=== PATIENT | female | born 1995 | race Hispanic/Latino ===

== ENCOUNTER 2019-09-22 13:31 | Emergency (ER) | payer MEDICAID ==
--- NOTE | 2019-09-22 15:13 | Emergency Department Report ---
Blank Doc - Documentation Documentation: 23-year-old female that presents with a rhogam shot. Patient was sent by [facility] for a rhogam. This initial assessment/diagnostic orders/clinical plan/treatment(s) is/are subject to change based on patient's health status, clinical progression and re-assessment by fellow clinical providers in the ED. Further treatment and workup at subsequent clinical providers discretion. Patient/guardians urged not to elope from the ED as their condition may be serious if not clinically assessed and managed. Initial orders include: 1- Patient sent to [facility] for further evaluation and treatment
[2019-09-22 15:14] VITALS: BP 117/70
--- NOTE | 2019-09-22 15:45 | Emergency Department Report ---
ED Recheck HPI - General Chief Complaint: Recheck/Abnormal Lab/Rx Stated Complaint: NEEDS RHOGAM SHOT Time Seen by Provider: 09/22/19 15:13 Source: patient Mode of arrival: Ambulatory Limitations: No Limitations - History of Present Illness Initial Comments: 23-year-old female that presents with a rhogam shot. Patient was sent by [facility] for a rhogam. Patient reports she is 6 months . She is 3 para 1. - Related Data Allergies Allergy/AdvReac Type Severity Reaction Status Date / Time Bleach (Sodium Hypochlorite) AdvReac Hives Verified 09/22/19 14:17 ED Review of Systems ROS: Stated complaint: NEEDS RHOGAM SHOT Other details as noted in HPI ED Past Medical Hx - Past Medical History Previous Medical History?: No - Surgical History Past Surgical History?: No - Social History Smoking Status: Current Every Day Smoker Substance Use Type: None ED Physical Exam - General Limitations: No Limitations General appearance: alert, in no apparent distress - Head Head exam: Present: atraumatic, normocephalic - ENT ENT exam: Present: mucous membranes moist - Neurological Exam Neurological exam: Present: alert, oriented X3, normal gait - Psychiatric Psychiatric exam: Present: agitated - Skin Skin exam: Present: warm, dry, intact, normal color. Absent: rash ED Course Vital Signs 09/22/19 15:11 Temperature 98.5 F Pulse Rate 92 H Respiratory 15 Rate Blood Pressure 117/70 O2 Sat by Pulse 99 Oximetry ED Recheck [facility] - Medical Decision Making Patient left because she was waiting too long to get her RhoGam injection. Patient should follow-up with her primary care RESEARCH DIETITIAN provider Critical care attestation.: If time is entered above; I have spent that time in minutes in the direct care of this critically ill patient, excluding procedure time. ED Disposition Clinical Impression: Encounter for prophylactic administration of RhoGAM Disposition: ELOPED Is pt being admited?: No Does the pt Need Aspirin: No Condition: Stable
== END 2019-09-22 17:00 | disposition left against medical advice (07) ==
LOC: ED 13:31
DX: O36.0190 Maternal care for anti-D [Rh] antibodies, unspecified trimester, not applicable or unspecified (principal); F17.200 Nicotine dependence, unspecified, uncomplicated; Z3A.00 Weeks of gestation of pregnancy not specified; Z29.13 Encounter for prophylactic Rho(D) immune globulin
CPT/HCPCS: 86850; 86900; 86901; 99281

== ENCOUNTER 2019-10-10 13:58 | Emergency (ER) | payer MEDICAID ==
--- NOTE | 2019-10-10 18:28 | Emergency Department Report ---
Chief Complaint: Medical Clearance Stated Complaint: TI SHOT Time Seen by Provider: 10/10/19 18:13 - HPI History of Present Illness: 23yo F states that she has a Rhogam shot order by her OBGYN ( Dr. Tamiko Kessler) to be given today. She denies pain or discomfort. - ROS Review of Systems: All systems reviewed and negative. - Exam Vital Signs: reviewed Physical Exam: General-WNL HEENNT-WNL Lungs-WNL Heart-WNL Abdomen-WNL MS-WNL Skin-WNL Neuro-WNL Psych-WNL MSE screening note: Focused history and physical exam performed. Due to findings the following was ordered: Pt was given her shot and D/C home; she was instructed f/u with OBGYN and see ER as needed. Patient discussed with doctor:: SUBHA MI ED Disposition for MSE Clinical Impression: Encounter for prophylactic administration of RhoGAM Condition: Stable Additional Instructions: F/U with OBGYN; see ER as needed. Referrals: GONZALEZ ESQUIVEL [Other] - 3-5 Days
--- NOTE | 2019-10-10 19:37 | Emergency Department Report ---
ED Recheck HPI - General Chief Complaint: Medical Clearance Stated Complaint: ROHGAM SHOT Time Seen by Provider: 10/10/19 18:13 Source: patient, family Mode of arrival: Ambulatory Limitations: No Limitations - History of Present Illness Initial Comments: This is a 23-year-old female she was sent from her INSECT CONTROL INSPECTOR office to get ED RhoGam shot at 7 months . Patient has no related issues. She has care and taking vitamin. Denies any vaginal bleed or discharge. No concern for STD. No shortness of breath chest pain or coronavirus related symptoms. Denies any nausea or vomiting. She says she is just here to get her RhoGam shot and she will follow-up with INSECT CONTROL INSPECTOR. She said INSECT CONTROL INSPECTOR sent her here because they do not have that shot. Patient blood type is O- MD Complaint: other (Sent for RhoGam shot) Initial Visit For: other (7 months ) Returns Today for: CBOAL (All negative), other (Need medication.) Symptoms Since Prior Visit: no new symptoms Context: called for abnorm lab res (All negative), other (Program) Associated Symptoms: none Treatments Prior to Arrival: other (None) - Related Data Allergies Allergy/AdvReac Type Severity Reaction Status Date / Time Bleach (Sodium Hypochlorite) AdvReac Hives Verified 09/22/19 14:17 ED Review of Systems ROS: Stated complaint: ROHGAM SHOT Other details as noted in HPI Constitutional: denies: chills, fever Respiratory: denies: cough, shortness of breath, wheezing Cardiovascular: denies: chest pain, palpitations, dyspnea on exertion, orthopnea, edema, syncope Gastrointestinal: denies: abdominal pain, nausea, vomiting, hematemesis, hematochezia Genitourinary: denies: hematuria Musculoskeletal: denies: back pain, arthralgia Skin: denies: rash Neurological: denies: headache ED Past Medical Hx - Past Medical History Previous Medical History?: No - Surgical History Past Surgical History?: No - Family History Family history: no significant - Social History Smoking Status: Current Every Day Smoker Substance Use Type: None ED Physical Exam - General Limitations: No Limitations General appearance: alert, in no apparent distress - Head Head exam: Present: atraumatic, normocephalic - Eye Eye exam: Present: normal appearance - ENT ENT exam: Present: normal exam, normal orophraynx, mucous membranes moist - Neck Neck exam: Present: normal inspection - Respiratory Respiratory exam: Present: normal lung sounds bilaterally. Absent: respiratory distress - Cardiovascular Cardiovascular Exam: Present: regular rate, normal rhythm, normal heart sounds - GI/Abdominal GI/Abdominal exam: Present: soft, normal bowel sounds. Absent: distended, tenderness - Extremities Exam Extremities exam: Present: normal inspection, full ROM. Absent: tenderness, normal capillary refill, pedal edema, calf tenderness - Back Exam Back exam: Present: normal inspection, full ROM - Neurological Exam Neurological exam: Present: alert, oriented X3, normal gait - Psychiatric Psychiatric exam: Present: normal affect, normal mood - Skin Skin exam: Present: warm, dry, intact, normal color. Absent: rash ED Course Vital Signs 10/10/19 10/10/19 10/10/19 14:42 18:33 21:40 Temperature 98.2 F Pulse Rate 99 H 92 H 84 Respiratory 18 16 16 Rate Blood Pressure 117/79 118/69 111/71 O2 Sat by Pulse 100 100 100 Oximetry - Reevaluation(s) Reevaluation #1: 10/10/19 20:37 Patient is stable and awaiting RhoGam shot that is been prepared by blood bank. Reevaluation #2: 10/10/19 21:46 Patient received ED RhoGam without any adverse reaction. She is stable and in no acute distress. ED Recheck MDM - Differential Diagnosis Prescription Refill(s) (Patient is here for ED RhoGam shot.) - Medical Decision Making This is a 23-year-old female sent by [employer] INS[employer] for ED RhoGam shot. Blood type is O-. Patient received medication and monitored and in stable condition. Discharge home from the ED to follow-up with INSE[facility] CONTROL INSPECTOR in 2 to 3 days. Critical care attestation.: If time is entered above; I have spent that time in minutes in the direct care of this critically ill patient, excluding procedure time. ED Disposition Clinical Impression: Encounter for prophylactic administration of RhoGAM Disposition: DC-01 TO HOME OR SELFCARE Is pt being admited?: No Does the pt Need Aspirin: No Condition: Stable Additional Instructions: Follow-up with INSECT CONTROL INSPECTOR as as instructed If your condition worsens return to the emergency room. Print Language: GREENLANDIC
[2019-10-10 21:41] VITALS: BP 111/71
== END 2019-10-10 22:00 | disposition home or self-care (01) ==
LOC: ED 13:58
DX: Z29.13 Encounter for prophylactic Rho(D) immune globulin (principal)
CPT/HCPCS: 85461; 86850; 86900; 86901; 96372; 99282; J2790

== ENCOUNTER 2019-12-03 16:53 | Inpatient (IN) | payer MEDICAID ==
[2019-12-03] MEDS ORDERED: fentaNYL 100 MCG/2 ML INJ IV PRN (18:18)
[2019-12-03] MEDS ORDERED: LIDOCAINE (2%) 20 MG/1 ML VIAL 20 ML MDV INFILTRATI ONE (18:18)
[2019-12-03] MEDS ORDERED: ePHEDrine SULFATE 50 MG/1 ML INJ IV PRN (18:18)
[2019-12-03] MEDS ORDERED: TERBUTALINE 1 MG/1 ML INJ SUB-Q PRN (18:18)
--- NOTE | 2019-12-03 18:30 | History and Physical Report ---
History of Present Illness Date of examination: 12/03/19 Date of admission: 12/03/2019 Chief complaint: Labor History of present illness: 23 year old presents to L&D in active labor. Patient is a [facility] patient and records are rosalia richardson. LMP 03/18/2019. EDC 12/17/2019. Past medical history: anxiety/depression, crohns disease, history of blood transfusion, induced , Rh negative, anemia. problems: anemia (supplemented with iron) and anxiety/depression (managed on Wellbutrin), + drug screen (THC). labs are as follows: O negative, antibody screen negative, rubella immune, hepatitis B surface antigen negative, HIV negative, RPR nonreactive, hepatitis C Ab negative, hemoglobin electrophoresis AA, panorama low risk male, 1 hour sugar test 94, gonorrhea negative, chlamydia negative, trichomonas negative, GBS negative. Past History Past Medical History: other (depression/anxiety, anemia, crohns disease) Past Surgical History: other (EAB first trimester) ABA THERAPIST History: denies: chlamydia, gonorrhea, hepatitis B, hepatitis C, herpes, HIV, syphilis, trichomonas Family/Genetic History: none Social history: lives with family, full code, other (THC use during ). denies: smoking, alcohol abuse, prescription drug abuse, IV drug use - Obstetrical History Expected Date of Delivery: 12/17/19 Actual Gestation: 38 Week(s) 0 Day(s) : 3 Para: 1 Hx # Term Pregnancies: 1 Number of Pregnancies: 0 Spontaneous Abortions: 0 Induced : 1 Number of Living Children: 1 Medications and Allergies Allergies Allergy/AdvReac Type Severity Reaction Status Date / Time Bleach (Sodium Hypochlorite) AdvReac Hives Verified 09/22/19 14:17 Active Meds: Active Medications Ephedrine Sulfate (Ephedrine Sulfate) 10 mg IV Q2M PRN PRN Reason: Hypotension Fentanyl (Sublimaze) 100 mcg IV Q2H PRN PRN Reason: Pain,Severe (7-10) LABOR PAIN Oxytocin/Sodium Chloride (Pitocin/Ns 20 Unit/1000ml Drip) 20 units in 1,000 mls @ 125 mls/hr IV DIRECT LYNNE Lactated Ringer's (Lactated Ringers) 1,000 mls @ 125 mls/hr IV DIRECT LYNNE Lidocaine (Xylocaine 2%) 20 ml INFILTRATI ONCE ONE Stop: 12/03/19 18:19 Terbutaline Sulfate (Brethine) 0.25 mg SUB-Q ONCE PRN PRN Reason: Hyperstimulation/Hypertonicity Review of Systems All systems: negative (contractions) - Vital Signs Vital signs: Vital Signs Temp Pulse BP 98.4 F 91 H 126/68 12/03/19 17:18 12/03/19 17:18 12/03/19 17:18 Temp Pulse Resp BP Pulse Ox 98.4 F 115 H 126/68 99 12/03/19 17:18 12/03/19 18:18 12/03/19 17:19 12/03/19 18:18 - Physical Exam Abdomen: Positive: normal appearance, soft. Negative: distention, tenderness, guarding, rigidity Genitourinary (Female): Positive: normal external genitalia, normal perenium. Negative: perineal/vulvar lesions (no lesions seen on careful exam with bright light upon admission) Vagina: Positive: normal moisture Uterus: Positive: enlarged. Negative: tender Anus/Rectum: Positive: normal perianal skin Extremities: Positive: normal. Negative: tenderness, edema - Obstetrical FHR: category 1 Uterine Contraction Monitor Mode: External Cervical Dilatation: 7 Cervical Effacement Percentage: 100 station: 0 Uterine Contraction Pattern: Regular Uterine Contraction Intensity: Moderate Results All other labs normal. Assessment and Plan A: at 38 weeks gestation. Active labor. GBS negative. History of THC use during . P: Admit. EFM. Anticipate vaginal . Urine drug screen.
[2019-12-03] MEDS: LACTATED RINGERS 1,000 ML IV SCH ×2 (18:37→21:23)
[2019-12-03] MEDS ORDERED: OXYTOCIN 20 UNIT/1000ML DRIP 20 UNITS/1,000 ML BAG IV SCH (19:00)
--- NOTE | 2019-12-03 19:08 | Event Note ---
Date: 12/03/19 SVE /0/BBOW.
[2019-12-03 19:13] LABS: Hematocrit 26.7 % (30.3-42.9); Hemoglobin 8.3 gm/dl (10.1-14.3); Mean Corpuscular HGB Conc 31 % (30-34); Mean Corpuscular Volume 73 fl (79-97); Platelet Count 218 K/mm3 (140-440); Red Blood Count 3.67 M/mm3 (3.65-5.03); Red Cell Distribution Width 18.3 % (13.2-15.2)
[2019-12-03] MEDS ORDERED: DEXMEDETOMIDINE 200 MCG/2 ML VIAL IV ONE (19:43)
[2019-12-03] MEDS ORDERED: MINERAL OIL 30 ML ORAL LIQD ONE (20:10)
--- NOTE | 2019-12-03 20:19 | Progress Note ---
Labor Epidural - Labor Epidural Start Time: 19:47 Stop Time: 19:58 Performed by:: MAURICIO STANFORD Procedure: Combined Spinal Epidural Patient is requesting combined spinal epidural for labor and pain. H&P, labs were reviewed. All questions and concerns were answered. Informed consent was obtained. Timeout performed. Patient in sitting position on side of bed. Sterile prep and drape was performed. [3] mL 1% lidocaine skin wheal at L [3]-L [4]. 18-gauge Touhy epidural needle advanced to [id number] using air technique, [5cm]. 27-gauge spinal needle advanced [clear positive free- flowing] CSF. spinal dose of [Precedex 10 mcg]. Epidural catheter advanced to [10] cm. [Negative] Aspiration, [negative] test dose. Sterile dressing applied. Patient tolerated procedure well.
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
[2019-12-03] MEDS ORDERED: MAGNESIUM HYDROXIDE (MOM) ORAL LIQD UDC PO PRN (20:59)
[2019-12-03] MEDS ORDERED: LANOLIN/ZINC/DIMETHICONE (LANSINOH) 7 GM TP PRN (20:59)
[2019-12-03] MEDS ORDERED: WITCH HAZEL/ GLYCERIN PAD TP PRN (20:59)
--- NOTE | 2019-12-03 21:07 | Procedure Note ---
OB Delivery Note - Delivery Date of Delivery: 12/03/19 Surgeon: YOSVANY MICHAELS Estimated blood loss: other (250 cc) - Vaginal Delivery presentation: vertex Delivery position: OA Intrapartum events: none Delivery induction: none Delivery augmentation: rupture of membranes Delivery monitor: external FHT, external uterine Route of delivery: Delivery placenta: spontaneous Delivery cord: 3 umbilical vessels Episiotomy: midline Delivery laceration: none Delivery repair: vicryl Anesthesia: local, epidural Delivery comments: Spontaneous vaginal delivery at 08:24 of liveborn male infant weighing 6 lb. 2 oz. over 1st degree midline episiotomy with apgars of 8/9. Epidural anesthesia. Baby placed skin to skin with mom immediately after delivery. Baby bulb suctioned, dried, and stimulated. Spontaneous cry and respirations. 3 vessel cord double clamped and cut. Cord blood obtained. Spontaneous delivery of intact placenta and membranes by avery mechanism; trailing membranes. Small 1st degree MLE repaired with 3-0 vicryl in usual sterile fashion. No other lacerations noted. Vaginal sweep negative. Sponge count correct. Mother and baby stable. Will order pelvic US due to trailing membranes.
--- NOTE | 2019-12-03 21:49 | Post Anesthesia Evaluation ---
- Post Anesthesia Evaluation Patient Participated: Yes Airway Patent: Yes Stable Respiratory Function: Yes Nausea/Vomiting: No Temp > 96.8F: Yes Pain Manageable: Yes Adequeate Hydration: Yes Anesthesia Complications: No Block Receding Appropriately: Yes Patient on Ventilator: No
--- NOTE | 2019-12-03 22:01 | Ultrasound Report ---
US pelvic limited INDICATION / CLINICAL INFORMATION: check for retained/accessory placental lobe. COMPARISON: None available. FINDINGS: There are some retained products of conception seen within the uterus. IMPRESSION: There are some retained products of conception in the uterus Signer Name: Robert Landeros MD FACR Signed: 12/03/2019 9:57 PM Workstation Name: [id number]
--- NOTE | 2019-12-03 22:31 | Event Note ---
Date: 12/03/19 US showed retained placental tissue. Patient is receiving IV Pitocin. Fundus is firm and midline below the umbilicus. Lochia is small to moderate in amount. Consulted with Dr. Ricks re: US results showing retained placental tissue. Dr. Ricks states to keep bleeding controlled; MD states no other interventions needed at this time.
[2019-12-03] MEDS: IBUPROFEN 600 MG TAB PO SCH (23:00)
[2019-12-03] MEDS: METHYLERGONOVINE 0.2 MG TABLET PO SCH (23:53)
[2019-12-04] MEDS: METHYLERGONOVINE 0.2 MG TABLET PO SCH ×3 (07:37→21:27)
[2019-12-04] MEDS: IBUPROFEN 600 MG TAB PO SCH ×3 (10:17→21:29)
[2019-12-04 10:32] LABS: Hematocrit 27.7 % (30.3-42.9); Hemoglobin 8.8 gm/dl (10.1-14.3)
[2019-12-04] MEDS: HYDROcodone/ACETAMINOPHEN 5-325 MG TAB PO PRN ×2 (11:16→20:06)
[2019-12-04] MEDS ORDERED: ONDANSETRON 4 MG/2 ML INJ IV ONE (13:18)
[2019-12-04] MEDS ORDERED: ONDANSETRON 4 MG ODT TAB PO PRN (14:31)
[2019-12-04] MEDS: DOCUSATE SODIUM 100 MG CAP PO SCH ×2 (17:42→21:31)
[2019-12-04] MEDS: FERROUS SULFATE 325 MG TAB PO SCH ×2 (17:43→21:27)
--- NOTE | 2019-12-04 19:18 | Progress Note ---
Assessment and Plan A: day 1 S/P . Anemia. P: Supplement with iron. Anticipate discharge in 24 to 48 hours. Subjective - Subjective Date of service: 12/04/19 Principal diagnosis: day 1 S/P Interval history: day 1 S/P . No complaints. Doing well. Patient reports: appetite normal, voiding normally, pain well controlled, flatus, ambulating normally, no dizzy ambulation, no nauseated : doing well Objective - Vital Signs Latest vital signs: Vital Signs Temp Pulse Resp BP Pulse Ox 12/04/19 17:07 97.3 F L 63 18 115/68 98 12/04/19 13:21 97.7 F 71 18 119/71 97 12/04/19 07:43 98.3 F 95 H 18 121/72 96 12/04/19 05:47 98.0 F 80 18 119/71 98 12/04/19 00:25 98.5 F 18 120/74 12/03/19 23:50 89 118/67 12/03/19 23:07 77 118/75 12/03/19 23:03 85 110/71 12/03/19 23:00 18 12/03/19 22:54 99 H 99 12/03/19 22:52 68 109/71 12/03/19 22:50 54 L 71 L 12/03/19 22:47 71 95 12/03/19 22:39 69 L 12/03/19 22:37 75 103/67 12/03/19 22:35 98.3 F 12/03/19 22:28 102 H 0 L 12/03/19 22:22 110 H 113/65 12/03/19 22:07 83 109/71 12/03/19 21:52 82 108/65 12/03/19 21:38 81 104/52 12/03/19 21:22 83 103/61 12/03/19 21:07 91 H 106/63 12/03/19 20:53 110 H 98 12/03/19 20:52 107 H 114/58 12/03/19 20:48 113 H 99 12/03/19 20:43 102 H 99 12/03/19 20:38 104 H 98 12/03/19 20:37 92 H 116/56 12/03/19 20:34 107 H 125/51 05/23/20 20:33 108 H 99 05/23/20 20:31 109 H 128/59 05/23/20 20:28 102 H 111/54 98 05/23/20 20:25 120 H 135/78 05/23/20 20:23 139 H 99 05/23/20 20:22 129 H 112/73 05/23/20 20:19 109 H 116/74 05/23/20 20:18 104 H 99 05/23/20 20:16 100 H 112/63 05/23/20 20:13 98 H 120/66 99 05/23/20 20:10 86 112/67 05/23/20 20:08 96 H 99 05//20 20:07 95 H 116/69 05//20 20:04 99 H 116/74 05//20 20:03 95 H 99 05/23/20 20:01 100 H 121/64 05/23/20 19:58 96 H 115/65 98 05//20 19:55 103 H 106/53 05/23/20 19:53 106 H 152/56 100 05/23/20 19:49 98 H 138/60 05/23/20 19:48 109 H 100 05/23/20 19:46 102 H 120/65 05/23/20 19:45 106 H 114/65 05//20 19:43 106 H 100 05/23/20 19:38 120 H 100 05/23/20 19:33 108 H 99 05/23/20 19:28 98 H 100 05/23/20 19:23 101 H 100 05//20 19:18 98 H 100 Intake and Output 0524/20 05/24/20 05/24/20 07:59 15:59 23:59 Intake Total 120 Output Total 900 Balance -780 Intake: Oral 120 Output: Urine 900 Void 900 Other: Total, Intake Amount 120 Total, Output Amount 900 # Voids Void 1 1 1 # Bowel Movements 0 - Exam Cardiovascular: Present: Regular rate, Normal S1, Normal S2 Lungs: Present: Clear to auscultation Abdomen: Present: normal appearance, soft. Absent: distention, tenderness, guarding, rigidity Uterus: Present: normal, firm, fundal height below umbilicus. Absent: bogginess, tenderness Extremities: Present: normal. Absent: tenderness, edema - Labs Labs: Abnormal lab results 12/04/19 Range/Units 10:00 Hgb 8.8 L (10.1-14.3) gm/dl Hct 27.7 L (30.3-42.9) %
[2019-12-05] MEDS: IBUPROFEN 600 MG TAB PO SCH (04:15)
[2019-12-05] MEDS: HYDROcodone/ACETAMINOPHEN 5-325 MG TAB PO PRN ×2 (04:16→13:18)
[2019-12-05] MEDS ORDERED: BENZOCAINE/MENTHOL 20/0.5% TOP SPRAY 56 GM TP PRN (09:08)
--- NOTE | 2019-12-05 09:35 | Ultrasound Report ---
ULTRASOUND PELVIS INDICATION / CLINICAL INFORMATION: Follow up retained POC. TECHNIQUE: Transabdominal. Duplex Color Doppler used: Yes. COMPARISON: None available FINDINGS: UTERUS: Thickened myometrium consistent with recent state. Endometrial stripe measures 0.9 cm, and the junctional zone is heterogeneous. A circumscribed, predominantly echogenic area measurin g 3.8 x 1.2 x 2.9 cm is noted in the endometrial cavity, which is not appreciated on the study from . Overall uterine dimensions 14.7 x 9.9 x 9.1 cm. The ovaries were not visualized. No abnormal adnexal mass. No pelvic free fluid. IMPRESSION: 1. Nodular echogenic mass in the endometrial cavity is a nonspecific sonographic appearance, with dif ferential including an evolving blood clot and/or retained products of conception. 2. The ovaries were not identified. Signer Name: Tejas Linn MD Signed: 12/05/2019 9:30 AM Workstation Name: [id number]
[2019-12-05] MEDS ORDERED: IRON DEXTRAN COMPLEX 100 MG/2 ML INJ IM ONE (10:00)
[2019-12-05] MEDS ORDERED: buPROPion 75 MG TAB PO SCH (11:30)
[2019-12-05] MEDS: DOCUSATE SODIUM 100 MG CAP PO SCH (13:11)
[2019-12-05] MEDS: FERROUS SULFATE 325 MG TAB PO SCH (13:11)
--- NOTE | 2019-12-05 14:00 | Progress Note ---
Assessment and Plan - Patient Problems (1) Status post normal vaginal delivery Current Visit: Yes Status: Acute Plan to address problem: PPD 2 - stable Continue routine orders Discharge to home today Follow-up at [facility] as needed or in 6 weeks exam (2) Single live Current Visit: Yes Status: Acute (3) Episiotomy pain Current Visit: Yes Status: Acute Plan to address problem: Dermoplast ordered (4) Anemia due to blood loss, acute Current Visit: Yes Status: Acute Plan to address problem: Asymptomatic Continue ferrous sulfate 325mg PO BID Infed 100mg IM x1 ordered. Patient declined Subjective - Subjective Date of service: 12/05/19 Principal diagnosis: PPD #1; s/p Interval history: see [facility] - H&P, Event Notes, OB Delivery Procedure Note and PP/FOOD AND DRUG INSPECTOR Progress Note Patient reports: appetite normal, voiding normally, pain well controlled, ambulating normally, no dizzy ambulation [place]: doing well, nursing well Objective - Vital Signs Latest vital signs: Vital Signs Temp Pulse Resp BP BP Pulse Ox 12/05/19 13:18 20 12/05/19 09:59 97.8 F 74 14 111/77 98 12/05/19 05:16 18 12/05/19 04:16 18 12/04/19 23:39 97.7 F 71 18 110/66 97 12/04/19 21:06 18 12/04/19 20:06 18 12/04/19 17:07 97.3 F L 63 18 115/68 98 Intake and Output 12/04/19 12/05/19 12/05/19 23:59 07:59 15:59 Intake Total 360 Balance 360 Intake: Intake, Free Water 360 Other: Voiding Method Toilet # Voids Void 1 2 - Exam Cardiovascular: Present: Regular rate Lungs: Present: Clear to auscultation Abdomen: Present: normal appearance, soft Vulva: both: laceration/episiotomy Uterus: Present: normal, firm, fundal height below umbilicus Extremities: Present: normal Comments: scant lochia
--- NOTE | 2019-12-05 14:04 | Discharge Summary ---
Providers - Providers Date of Admission: 12/03/19 18:36 Date of discharge: 12/05/19 Attending physician: RAFIA FRANCIS 12/03/19 22:46 Consult to Case Management [CONS] Stat Services Needed at Discharge: Virology Teacher Notified:: no Primary care physician: REPRODUCTIVE SURGEON Hospitalization Reason for admission: active labor, IUP at term Delivery: Episiotomy: midline Laceration: none Other procedures: none complications: none Discharge diagnosis: IUP at term delivered [place] baby: male Hospital course: Uncomplicated Condition at discharge: Stable Disposition: DC-01 TO HOME OR SELFCARE - Discharge Diagnoses (1) Status post normal vaginal delivery Status: Acute (2) Single live Status: Acute (3) Episiotomy pain Status: Acute Comment: Encouraged Sitz baths and Dermoplast as needed (4) Anemia due to blood loss, acute Status: Acute Comment: Asymptomatic Continue iron therapy Eat iron-rich foods Plan - Discharge Medications Prescriptions: Ferrous Sulfate [Feosol 325 MG tab] 325 mg PO BID #60 tablet - Provider Discharge Summary Activity: routine, no sex for 6 weeks, no heavy lifting 4 weeks, no strenuous exercise Diet: routine Instructions: routine Additional instructions: [] Smoking cessation referral if applicable(refer to patient education folder for contact #) [] Refer to [facility]'s [place] [facility] Booklet Call your doctor immediately for: * Fever > 100.5 * Heavy vaginal bleeding ( >1 pad per hour) * Severe persistent headache * Shortness of breath * Reddened, hot, painful area to leg or breast * Drainage or odor from incision. * Keep incision clean and dry at all times and follow doctor's instructions regarding bathing/showering - Follow up plan Follow up: PRIMARY CARE,MD [Primary Care Provider] - 6 Weeks (Follow-up at [facility] as needed or in 6 weeks exam)
[2019-12-05 16:14] VITALS: BP 133/87
== END 2019-12-05 15:40 | disposition home or self-care (01) | DRG 774 ==
LOC: TRG 16:53 → APU 16:57 → LD 18:13 → TRG 18:36 → OB 12-04 00:27
PROVIDERS: ADMIT Obstetrics & Gynecology; ATTEND Obstetrics & Gynecology
PROC: 10E0XZZ Delivery of Products of Conception, External Approach (ICD-10-PCS; principal; 2019-12-03)
PROC: 0W8NXZZ Division of Female Perineum, External Approach (ICD-10-PCS; 2019-12-03)
PROC: 3E0R3BZ Introduction of Anesthetic Agent into Spinal Canal, Percutaneous Approach (ICD-10-PCS; 2019-12-03)
PROC: 00HU33Z Insertion of Infusion Device into Spinal Canal, Percutaneous Approach (ICD-10-PCS; 2019-12-03)
DX: O99.344 Other mental disorders complicating childbirth (principal); O73.0 Retained placenta without hemorrhage; O99.52 Diseases of the respiratory system complicating childbirth; O99.334 Smoking (tobacco) complicating childbirth; F17.200 Nicotine dependence, unspecified, uncomplicated; J45.909 Unspecified asthma, uncomplicated; K21.9 Gastro-esophageal reflux disease without esophagitis; F41.9 Anxiety disorder, unspecified; F32.9 Major depressive disorder, single episode, unspecified; O99.62 Diseases of the digestive system complicating childbirth; K50.90 Crohn's disease, unspecified, without complications; O99.02 Anemia complicating childbirth; D62 Acute posthemorrhagic anemia; O70.0 First degree perineal laceration during delivery; Z3A.38 38 weeks gestation of pregnancy; Z37.0 Single live birth
CPT/HCPCS: 36415; 76857; 85014; 85018; 85027; 86592; 86850; 86870; 86900; 86901; 87806; G0378; J1750; J2405; J2590; J3490; J7120; Q0162

== ENCOUNTER 2020-11-16 09:28 | Day surgery (SDC) | payer MEDICAID ==
[~2020-11-16 09:28] MED LIST: SODIUM CHLORIDE 0.9% 1000 ML 1,000 ML IV SCH
--- NOTE | 2020-11-16 10:43 | Anesthesia Day of Surgery ---
Anesthesia Day of Surgery - Day of Surgery Patient Examined: Yes Patient H&P Reviewed: Yes Patient is NPO: Yes
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
--- NOTE | 2020-11-16 11:37 | History and Physical Report ---
ADMIT DATE: 11/16/2020 HISTORY OF PRESENT ILLNESS: This is a 24-year-old white female who was last seen 2 years ago. She had a in between, comes in because of persistent abdominal pain with associated nausea and formed vomiting. She states that she has been losing weight. The last time she was about 105 pounds. She has since the gained some weight and is about 119 pounds at present. SOCIAL HISTORY: Admits to smoking, has been advised not to do so. No alcohol use. No cardiac issues. No flu shots. ALLERGIES: She has no known allergies. PHYSICAL EXAMINATION: VITAL SIGNS: Height is 5 feet 7 inches, weight is 119 pounds, temperature is 98.6. NECK: Shows no JVD. LUNGS: Clear to auscultation. CARDIOVASCULAR: Normal. ABDOMEN: Soft with some tenderness to palpation in the mid and epigastric area. Bowel sounds are present. EXTREMITIES: No pedal edema. NEUROLOGIC: She is alert and oriented. She is complaining of abdominal pain. ASSESSMENT: Nausea, vomiting, abdominal pain, possible peptic ulcer disease. PLAN: To do an esophagogastroduodenoscopy at [facility] on 11/16/2020. TID: [id number] RECEIPT: [id number] BACILIO/PRE
--- NOTE | 2020-11-16 11:45 | Procedure Note ---
Date of procedure: 11/16/20 Pre-op diagnosis: Dyspeptic Symptomes/ Nauseaand Vomiting/ Possible Peptic Ulcer Disease Post-op diagnosis: other (No Peptic Ulcer Disease noted/ Mild to Moderate Erosive Esophagitis/ Gastritis/ R/O Eosinophilic Esophagitis/ R/O Celiac Disease) Procedure: EGD with Biopsy Anesthesia: [facility] [place] Surgeon: MARY UMANA Estimated blood loss: minimal Pathology: list Specimen disposition: to lab Condition: stable Disposition: same day (Treat with PPI, prn Zofran andOTC Probiotic of choice as directed. Avoid aspirin and NSAID for 5 days; otherwise resume home medication and follow up in 1 to 2 weeks ([phone]).)
--- NOTE | 2020-11-16 12:06 | Operative Report ---
DATE OF SURGERY: 11/16/2020 PROCEDURE: EGD with biopsy. INDICATIONS: This is a 24-year-old white female who has longstanding problems with dyspeptic symptoms and epigastric pain with nausea and vomiting suggestive of peptic ulcer disease. EGD was done to assess for any significant upper GI pathology accounting for the patient's problems. DESCRIPTION OF PROCEDURE: Procedure was done after getting informed consent with MAC anesthesia. Instrument was passed through the hypopharynx into the esophagus, which showed [id number] erosive esophagitis. Biopsy was done up to the distal esophagus to assess for the severity of the erosive esophagitis as well as from the mid esophagus to assess for possible eosinophilic esophagitis. Stomach did not show any peptic ulcer disease in the straight or the retroverted view. Biopsy was done from the gastric antrum, the gastric body, and angularis incisura to rule out for H. pylori and atrophic gastritis. The pylorus is patent. The duodenum in the first and second portion appeared normal. Biopsy was done from the second part to rule out for possible celiac disease. There was minimal bleeding associated with the procedure. No complications associated with the procedure. IMPRESSION: Dyspepsia, nausea, vomiting, [id number] erosive esophagitis, gastritis, rule out celiac disease, rule out eosinophilic esophagitis. PLAN: To treat the patient with PPI, p.r.n. Zofran and [id number] probiotics. Have the patient avoid aspirin and aspirin-related products as well as tobacco and alcohol products and follow up in the office in 1-2 weeks' time. Procedure was done in the GI lab with assistance of the GI lab team, which included Deborah Eubanks, GI nurse, Radha and with assistance of anesthesia. TID: [id number] RECEIPT: [id number] BACILIO/SANDY
[2020-11-16 13:47] VITALS: BP 118/82
--- NOTE | 2020-11-16 14:57 | Post Anesthesia Evaluation ---
- Post Anesthesia Evaluation Patient Participated: Yes Airway Patent: Yes Stable Respiratory Function: Yes Nausea/Vomiting: No Temp > 96.8F: Yes Pain Manageable: Yes Adequeate Hydration: Yes Anesthesia Complications: No Block Receding Appropriately: Not Applicable Patient on Ventilator: No
== END 2020-11-16 12:21 | disposition home or self-care (01) ==
LOC: GIO 09:28
DX: R10.13 Epigastric pain (principal); R11.2 Nausea with vomiting, unspecified; K29.50 Unspecified chronic gastritis without bleeding; B96.81 Helicobacter pylori [H. pylori] as the cause of diseases classified elsewhere; K31.89 Other diseases of stomach and duodenum; K21.00 Gastro-esophageal reflux disease with esophagitis, without bleeding; J45.909 Unspecified asthma, uncomplicated; Z83.3 Family history of diabetes mellitus; Z82.49 Family history of ischemic heart disease and other diseases of the circulatory system
CPT/HCPCS: 43239; 81025; 88305; 88342; J7030